=== PATIENT | male | born 1935 | race African-American/Black ===

== ENCOUNTER 2018-12-18 10:01 | Observation (INO) ==
--- NOTE | 2018-12-18 10:10 | Emergency Department Note ---
Disposition Clinical Impression: Generalized weakness UTI (urinary tract infection) Qualifiers: Urinary tract infection type: site unspecified Hematuria presence: without hematuria Qualified Code(s): N39.0 - Urinary tract infection, site not specified Fall Qualifiers: Encounter type: initial encounter Qualified Code(s): W19.XXXA - Unspecified fall, initial encounter Disposition: Admitted As Inpatient Condition: Good Referrals: Evy Christie QUANTITATIVE STRATEGY ANALYST [Primary Care Provider] - Forms: ED Satisfaction Letter Time of Disposition: 12:14 Weakness HPI - General Chief complaint: ED Weakness Stated complaint: weakness lethargic Time Seen by Provider: 12/18/18 10:09 Source: patient, EMS Mode of arrival: EMS Limitations: no limitations Nursing Notes Reviewed: Yes Vital Signs Reviewed: Yes - History of Present Illness HPI Narrative: Patient is an 83-year-old male with past medical history of diabetes. He presents today due to concern for generalized weakness. Patient states that this has been going for a few days, was worsening this morning. He said he felt weak this morning that he backed up against the wall and slid down. He denies any chest pain, shortness of breath, nausea, vomiting, fevers, diarrhea, abdominal pain, numbness, tingling, focal weakness in any limb, facial drooping, slurred speech. Denies any previous history of strokes. He takes oral diabetes medication, has not missed any doses. He took his blood sugar this morning and it was in the 200s. EMS states that there repeat glucose was in the 100. He did not take his medication this morning. His is present states that he presented like this in the past and had a UTI. Patient denies any other previous history of heart attack, stent placement. - Related Data Home Medications Medication Instructions Recorded Confirmed Calcitriol 0.5 mcg PO DAILY 03/22/16 09/26/18 Ergocalciferol (VITAMIN D2) 400 unit PO DAILY 03/22/16 09/26/18 [Vitamin D] GlipiZIDE [Glipizide Xl] 5 mg PO DAILY 03/22/16 09/26/18 Donepezil HCl [Aricept] 10 mg PO DAILY 03/22/17 09/26/18 Simvastatin [Zocor] 40 mg PO HS 03/25/18 09/26/18 Timolol Maleate 0.5% 1 drop RIGHT EYE BID 03/25/18 09/26/18 Allergies Allergy/AdvReac Type Severity Reaction Status Date / Time No Known Allergies Allergy Verified 09/26/18 10:39 All systems ED: reviewed and negative except as stated. Constitutional: Denies: fever Cardiovascular: Denies: chest pain Respiratory: Denies: dyspnea Gastrointestinal: Denies: abdominal pain, nausea, vomiting, diarrhea Genitourinary: Denies: urgency, dysuria, frequency, hematuria Integumentary: Denies: rash Neurological: Denies: headache, weakness, numbness, paresthesias Endocrine: Reports: fatigue Past Medical History - Past Medical History Attestation: Yes The following information was validated with the patient. Source: patient Medical history: Reports: diabetes Psychiatric history: Reports: no psych history - Social History Smoking Status: Never smoker Smokeless Tobacco Status: No Alcohol use: Reports: none Drug use: Reports: none, unknown Physical Exam - General Limitations: no limitations General appearance: alert, in no apparent distress - Head Head exam: atraumatic, normocephalic, normal inspection - Eye Eye exam: Present: normal appearance, PERRL, EOMI - ENT ENT exam: normal exam, normal oropharynx, mucous membranes moist - Neck Neck exam: Present: normal inspection, full ROM, trachea midline - Chest Chest inspection: Present: normal inspection, symmetric chest wall rise - Respiratory Respiratory exam: Present: normal lung sounds bilaterally - Cardiovascular Cardiovascular exam: Present: regular rate, normal rhythm, normal heart sounds - Abdominal Exam Abdominal exam: Present: soft, Non-Tender. Absent: tenderness, distention, guarding, rebound, rigidity - Extremities Exam Extremities exam: Present: normal inspection, full ROM. Absent: tenderness, pedal edema - Neurological Exam Neurological exam: Present: alert, oriented X3, CN II-XII intact. Absent: motor sensory deficit - Expanded Neurological Exam Patient oriented to: Present: person, place, time Speech: Present: fluid speech Cranial nerves: EOM function (II, III, IV, ): Normal, facial sensation (V): Normal, facial palsy (VII): Normal, spinal accessory function (XI): Normal, tongue deviation (XII): Normal Motor strength - LUE: 5/5 Motor strength - RUE: 5/5 Motor strength - LLE: 5/5 Motor strength - RLE: 5/5 Sensory exam upper extremity: light touch: Normal Sensory exam lower extremity: light touch: Normal Coma Scale Eye Opening: Spontaneous Coma Scale Motor Response: Obeys Commands Coma Scale Verbal Response: Oriented Coma Scale Total: 15 - Psychiatric Psychiatric exam: Present: normal affect, normal mood - Skin Skin exam: Present: warm, dry, intact, normal color Course Course Narrative: Vital stable. Physical exam shows mild left upper extremity drift but does not hit the bed. Otherwise, no other deficits noted. No facial drooping, no slurred speech, no other focal neurological deficit. Lungs within normal limits. Abdomen soft and nontender. does state that previously he had symptoms similar to this in he ended up having UTI. We will obtain EKG, chest x-ray to assess for any hip pneumonia, urinalysis, basic blood work and troponin level, also obtain CT the head for left upper extremity drift. Blood glucose was in the 100s. 12:09 lab work shows negative troponin, EKG was negative for any acute ST changes, chest x-ray negative for any acute cardio pulmonary process. Urinalysis shows evidence of UTI. TSH was negative. Vitals of been stable during his stay. He does have elevation white blood cell count but does not meet sepsis criteria at this time. I discussed with family the possibility of going home but did also discuss patient's recent generalized weakness, episode of falling, which may make it less safe to go home at this time. Patient states that he feels generally weak and could not get out of bed and is not comfortable with patient going home at this time due to safety issues. She states that he was slumping up against a wall and cannot get himself up, cannot walk. He can safely send the patient home at this time. We will start IV Rocephin, continue normal saline bolus and proceed with admission for UTI. Vital Signs Temperature 97.7 F 12/18/18 10:04 Pulse Rate 76 12/18/18 10:04 Respiratory Rate 15 12/18/18 10:04 Blood Pressure 144/76 12/18/18 10:04 O2 Sat by Pulse Oximetry 96 12/18/18 10:04 Temperature 97.7 F 12/18/18 10:04 Pulse Rate 83 12/18/18 12:39 Respiratory Rate 16 12/18/18 12:39 Blood Pressure 124/69 12/18/18 12:39 O2 Sat by Pulse Oximetry 100 12/18/18 12:39 Oxygen Delivery Oxygen Delivery Room Air Weakness - MDM Narrative Medical decision making narrative: Vital stable. Physical exam shows mild left upper extremity drift but does not hit the bed. Otherwise, no other deficits noted. No facial drooping, no slurred speech, no other focal neurological deficit. Lungs within normal limits. Abdomen soft and nontender. does state that previously he had symptoms similar to this in he ended up having UTI. We will obtain EKG, chest x-ray to assess for any hip pneumonia, urinalysis, basic blood work and troponin level, also obtain CT the head for left upper extremity drift. Blood glucose was in the 100s. 12:[address] negative. lab work shows negative troponin, EKG was negative for any acute ST changes, chest x-ray negative for any acute cardio pulmonary process. Urinalysis shows evidence of UTI. TSH was negative. Vitals of been stable during his stay. He does have elevation white blood cell count but does not meet sepsis criteria at this time. I discussed with family the possibility of going home but did also discuss patient's recent generalized weakness, episode of falling, which may make it less safe to go home at this time. Patient states that he feels generally weak and could not get out of bed and is not comfortable with patient going home at this time due to safety issues. She states that he was slumping up against a wall and cannot get himself up, cannot walk. He can safely send the patient home at this time. We will start IV Rocephin, continue normal saline bolus and proceed with admission for UTI. Hospitalist paged. 13:00 - Medical Records Medical records reviewed: Yes I reviewed the patient's medical records. - Lab Data Lab results reviewed: Yes I reviewed the patient's lab results. Result diagrams: 12/18/18 10:25 12/18/18 10:25 Lab Results 12/18/18 12/18/18 12/18/18 Range/Units 10:25 10:25 11:22 WBC 13.6 H (4.3-11.1) K/mcL RBC 3.88 L (4.19-5.50) M/mcL Hgb 11.6 L (12.9-16.9) g/dL Hct 36.9 L (37.5-50.1) % MCV 95.1 (83.0-100.0) fL MCH 29.9 (28.0-33.3) pg MCHC 31.4 L (31.6-35.5) g/dL RDW 11.9 (11.5-14.5) % Plt Count 127 L (140-400) K/mcL MPV 10.3 (9.4-12.4) fL Immature Gran % 0.9 (0-4) % Seg Neutrophils % 82.4 % Lymphocytes % 8.5 % Monocytes % 8.0 % Eosinophils % 0.1 % Basophils % 0.1 % Neutrophils # 11.2 H (1.6-8.9) K/mcL Lymphocytes # 1.2 (0.6-4.6) K/mcL Monocytes # 1.1 (0.0-1.3) K/mcL Eosinophils # 0.0 (0.0-0.6) K/mcL Basophils # 0.0 (0.0-0.2) K/mcL Sodium 136 (136-145) mEq/L Potassium 4.3 (3.5-5.1) mEq/L Chloride 103 (98-107) mEq/L Carbon Dioxide 19 L (23-29) mEq/L BUN 22 (8-23) mg/dL Creatinine 1.74 H (0.70-1.30) mg/dL Est GFR ( Amer) 46 L (> 60) Est GFR (Non-Af Amer) 38 L (> 60) BUN/Creatinine Ratio 13 (6-26) Glucose 242 H (70-105) mg/dL Calculated Osmolality 293 (280-300) Calcium 9.5 (8.6-10.3) mg/dL Total Bilirubin 0.8 (0.3-1.0) mg/dL AST 16 (13-39) Units/L ALT 22 (7-52) Units/L Alkaline Phosphatase 85 (34-104) Units/L Troponin I < 0.03 (< 0.04) ng/mL Serum Total Protein 6.8 (6.4-8.9) g/dL Albumin 3.8 (3.5-5.7) g/dL Globulin 3.0 (2.4-3.5) g/dL Albumin/Globulin Ratio 1.3 (1.1-2.2) TSH 0.901 (0.340-5.600) mcIU/mL Urine Color Yellow (Yellow) Urine Clarity Cloudy A (Clear) Urine pH 7.0 (5.0-8.0) pH Units Ur Specific [place] 1.014 (1.010-1.025) Urine Protein 100 H (Neg-Trace) mg/dL Urine Glucose (UA) 500 H (Normal) mg/dL Urine Ketones Negative (Negative) mg/dL Urine Blood Trace H (Negative) Urine Nitrite Negative (Negative) Urine Bilirubin Negative (Negative) Urine Urobilinogen Normal (Normal) mg/dL Ur Leukocyte Esterase Large H (Negative) Urine Microscopic RBC 3-5 H (0-3) per hpf Urine Microscopic WBC TNTC H (0-3) per hpf Ur Squamous Epith Cells Moderate H (None-Few) per lpf Urine Bacteria Moderate H (None-Few) per hpf Hyaline Casts None Seen (None-Few) per lpf Ur Culture Indicated? YES A (NO) - Radiology Data Radiology results reviewed: Yes I reviewed the patient's radiology results. - EKG Data EKG attestation: Yes I reviewed and interpreted this EKG. EKG results narrative: 12/18/2018 10:12. Normal sinus rhythm. Rate 81. W[place] 128. QRS 89. QTc 421. Normal axis. No acute ST elevation or depression. There is some mild ST elevation in V2, lead 1, lead aVL that is chronic for the patient compared to EKG on 10/20/2014. S.B.A.R. - S.B.A.R. Situation: Demographics, MOA Background: Presenting Complaint, Relevant PMH, Meds, & Allergies Assessment: Vital Signs, Course and respsone to treatment, Exam Concerns, Patient/Family Expectation, Pertinant Lab Results Recommendation: Barrier(s) to disposition, Recommendation based on pending studies, treatments, or consults S.B.A.R. Report Given to: Dr. Null NIH Stroke Scale - Level of Consciousness LOC: Alert - LOC Questions LOC Questions: Answers both correctly - LOC Commands LOC Commands: Performs both correctly - Best Gaze Best Gaze: Normal - Visual Visual: No visual loss - Facial Palsy Facial Palsy: Normal - Motor Arms Motor Arm-Left: Drift, does NOT hit bed Motor Arm-Right: No drift for 10 seconds - Motor Legs Motor Leg-Left: No drift for 5 seconds Motor Leg-Right: No drift for 5 seconds - Limb Ataxia Limb Ataxia: Absent of affected limb too weak to perform exam - Sensory Sensory: Normal - Best Language Best Language: No aphasia - Dysarthria Dysarthria: Normal - Extinction and Inattention Extinction and Inattention: Normal - NIHSS Total Score NIHSS Total Score: 1
[2018-12-18 10:35] LABS: Basophils % 0.1 %; Eosinophils % 0.1 %; Hematocrit 36.9 % (37.5-50.1); Hemoglobin 11.6 g/dL (12.9-16.9); Immature Granulocytes % 0.9 % (0-4); Lymphocytes # 1.2 K/mcL (0.6-4.6); Lymphocytes % 8.5 %; Mean Corpuscular HGB Conc 31.4 g/dL (31.6-35.5); Mean Corpuscular Hemoglobin 29.9 pg (28.0-33.3); Mean Corpuscular Volume 95.1 fL (83.0-100.0); Mean Platelet Volume 10.3 fL (9.4-12.4); Monocytes # 1.1 K/mcL (0.0-1.3); Neutrophils # 11.2 K/mcL (1.6-8.9); Platelet Count 127 K/mcL (140-400); Red Blood Count 3.88 M/mcL (4.19-5.50); Red Cell Distribution Width 11.9 % (11.5-14.5); Segmented Neutrophils % 82.4 %
[2018-12-18 10:57] LABS: Troponin I < 0.03 ng/mL (< 0.04)
--- NOTE | 2018-12-18 11:12 | Emergency Department Note ---
Disposition Clinical Impression: UTI (urinary tract infection), Generalized weakness, Fall Disposition: Admitted As Inpatient Condition: Good Referrals: Pratik,Eyv Crowley CNP [Primary Care Provider] - Forms: ED Satisfaction Letter General Adult HPI - General Chief complaint: ED Weakness Stated complaint: weakness lethargic Time Seen by Provider: 12/18/18 10:09 Source: patient, EMS Mode of arrival: EMS Limitations: no limitations - History of Present Illness Pain Scale: 0 - Related Data Home Medications Medication Instructions Recorded Confirmed Calcitriol 0.5 mcg PO DAILY 03/22/16 09/26/18 Ergocalciferol (VITAMIN D2) 400 unit PO DAILY 03/22/16 09/26/18 [Vitamin D] GlipiZIDE [Glipizide Xl] 5 mg PO DAILY 03/22/16 09/26/18 Donepezil HCl [Aricept] 10 mg PO DAILY 03/22/17 09/26/18 Simvastatin [Zocor] 40 mg PO HS 03/25/18 09/26/18 Timolol Maleate 0.5% 1 drop RIGHT EYE BID 03/25/18 09/26/18 Allergies Allergy/AdvReac Type Severity Reaction Status Date / Time No Known Allergies Allergy Verified 09/26/18 10:39 Constitutional: Denies: fever Cardiovascular: Denies: chest pain Respiratory: Denies: dyspnea Gastrointestinal: Denies: abdominal pain, nausea, vomiting, diarrhea Genitourinary: Denies: urgency, dysuria, frequency, hematuria Integumentary: Denies: rash Neurological: Denies: headache, weakness, numbness, paresthesias Endocrine: Reports: fatigue Past Medical History - Past Medical History Medical history: Reports: diabetes Psychiatric history: Reports: no psych history - Social History Smoking Status: Never smoker Smokeless Tobacco Status: No Alcohol use: Reports: none Drug use: Reports: none, unknown Physical Exam - General Limitations: no limitations General appearance: alert, in no apparent distress Course Vital Signs Temperature 97.7 F 12/18/18 10:04 Pulse Rate 76 12/18/18 10:04 Respiratory Rate 15 12/18/18 10:04 Blood Pressure 144/76 12/18/18 10:04 O2 Sat by Pulse Oximetry 96 12/18/18 10:04 Temperature 97.7 F 12/18/18 10:04 Pulse Rate 83 12/18/18 12:39 Respiratory Rate 16 12/18/18 12:39 Blood Pressure 124/69 12/18/18 12:39 O2 Sat by Pulse Oximetry 100 12/18/18 12:39 Oxygen Delivery Oxygen Delivery Room Air Medical Decision Making - Lab Data Result diagrams: 12/18/18 10:25 12/18/18 10:25 Lab Results 12/18/18 12/18/18 12/18/18 Range/Units 10:25 10:25 11:22 WBC 13.6 H (4.3-11.1) K/mcL RBC 3.88 L (4.19-5.50) M/mcL Hgb 11.6 L (12.9-16.9) g/dL Hct 36.9 L (37.5-50.1) % MCV 95.1 (83.0-100.0) fL MCH 29.9 (28.0-33.3) pg MCHC 31.4 L (31.6-35.5) g/dL RDW 11.9 (11.5-14.5) % Plt Count 127 L (140-400) K/mcL MPV 10.3 (9.4-12.4) fL Immature Gran % 0.9 (0-4) % Seg Neutrophils % 82.4 % Lymphocytes % 8.5 % Monocytes % 8.0 % Eosinophils % 0.1 % Basophils % 0.1 % Neutrophils # 11.2 H (1.6-8.9) K/mcL Lymphocytes # 1.2 (0.6-4.6) K/mcL Monocytes # 1.1 (0.0-1.3) K/mcL Eosinophils # 0.0 (0.0-0.6) K/mcL Basophils # 0.0 (0.0-0.2) K/mcL Sodium 136 (136-145) mEq/L Potassium 4.3 (3.5-5.1) mEq/L Chloride 103 (98-107) mEq/L Carbon Dioxide 19 L (23-29) mEq/L BUN 22 (8-23) mg/dL Creatinine 1.74 H (0.70-1.30) mg/dL Est GFR ( Amer) 46 L (> 60) Est GFR (Non-Af Amer) 38 L (> 60) BUN/Creatinine Ratio 13 (6-26) Glucose 242 H (70-105) mg/dL Calculated Osmolality 293 (280-300) Calcium 9.5 (8.6-10.3) mg/dL Total Bilirubin 0.8 (0.3-1.0) mg/dL AST 16 (13-39) Units/L ALT 22 (7-52) Units/L Alkaline Phosphatase 85 (34-104) Units/L Troponin I < 0.03 (< 0.04) ng/mL Serum Total Protein 6.8 (6.4-8.9) g/dL Albumin 3.8 (3.5-5.7) g/dL Globulin 3.0 (2.4-3.5) g/dL Albumin/Globulin Ratio 1.3 (1.1-2.2) TSH 0.901 (0.340-5.600) mcIU/mL Urine Color Yellow (Yellow) Urine Clarity Cloudy A (Clear) Urine pH 7.0 (5.0-8.0) pH Units Ur Specific [place] 1.014 (1.010-1.025) Urine Protein 100 H (Neg-Trace) mg/dL Urine Glucose (UA) 500 H (Normal) mg/dL Urine Ketones Negative (Negative) mg/dL Urine Blood Trace H (Negative) Urine Nitrite Negative (Negative) Urine Bilirubin Negative (Negative) Urine Urobilinogen Normal (Normal) mg/dL Ur Leukocyte Esterase Large H (Negative) Urine Microscopic RBC 3-5 H (0-3) per hpf Urine Microscopic WBC TNTC H (0-3) per hpf Ur Squamous Epith Cells Moderate H (None-Few) per lpf Urine Bacteria Moderate H (None-Few) per hpf Hyaline Casts None Seen (None-Few) per lpf Ur Culture Indicated? YES A (NO) Attestation Statement - Attestation Attestation: I examined this patient and my medical decision-making was reviewed with the Resident Physician. I agree with the documented findings, disposition and treatment plan as described except to the extent set forth below. Patient presents to the ED with Johny and generalized weakness. Onset today. Woke up this way. He denies any focal weakness. arrives and states that this happened previously when he had a UTI. Denies any numbness or tingling. states when she took the garbage out and came back and he had slumped down to the floor. He denies injury. On examination he is awake alert. Oriented. In no distress. Moving all extremities. Abdomen soft. Lungs clear. Plan. Generalized weakness workup. CT head. Workup is significant for UTI. Concern as the collapse today that he is unsafe for discharge home. Admitted to medicine. Chest X-Ray 12/18/18 10:09 IMPRESSION: No acute process. D/ / Jonel Addison MD / Jonel Addison MD Interpreting Provider: Jonel Addison MD Head CT 12/18/18 10:11 IMPRESSION: No acute intracranial abnormality. Generalized age-related cortical atrophy and chronic microvascular ischemic changes. D/ / Jacobo Escobar MD / Jacobo Escobar MD Interpreting Provider: Jacobo Escobar MD
[2018-12-18] MEDS ORDERED: Lidocaine Jelly 11 ml Syringe MM ONE (11:21)
[2018-12-18 11:40] LABS: Bilirubin,Urine Negative (Negative); Blood,Urine Trace (Negative); Clarity,Urine Cloudy (Clear); Color,Urine Yellow (Yellow); Glucose,Urine (UA) 500 mg/dL (Normal); Ketones,Urine Negative (Negative); Leukocyte Esterase,Urine Large (Negative); Nitrite,Urine Negative (Negative); Protein,Urine 100 mg/dL (Neg-Trace); Specific Gravity,Urine 1.014 (1.010-1.025); Urobilinogen,Urine Normal (Normal)
[2018-12-18 11:42] LABS: Bacteria,Urine Moderate per hpf (None-Few); Hyaline Casts,Urine None Seen per lpf (None-Few); Squamous Epithelial Cell,Urine Moderate per lpf (None-Few); WBC,Urine TNTC per hpf (0-3)
[2018-12-18 11:56] LABS: Alanine Aminotransferase 22 Units/L (7-52); Albumin 3.8 g/dL (3.5-5.7); Albumin/Globulin Ratio 1.3 (1.1-2.2); Alkaline Phosphatase 85 Units/L (34-104); Aspartate Amino Transferase 16 Units/L (13-39); BUN/Creatinine Ratio 13 (6-26); Bilirubin,Total 0.8 mg/dL (0.3-1.0); Blood Urea Nitrogen 22 mg/dL (8-23); Calcium 9.5 mg/dL (8.6-10.3); Carbon Dioxide 19 mEq/L (23-29); Chloride 103 mEq/L (98-107); Glucose 242 mg/dL (70-105); Osmolality,Calculated 293 (280-300); Potassium 4.3 mEq/L (3.5-5.1); Sodium 136 mEq/L (136-145); Thyroid Stimulating Hormone 0.901 mcIU/mL (0.340-5.600); Total Protein 6.8 g/dL (6.4-8.9); eGFR For Non-African Americans 38 (> 60)
[2018-12-18] MEDS ORDERED: cefTRIAXone 1,000 MG in Water for inj. (sterile) 20 ML 10 ML IVP ONE (12:08)
[2018-12-18] MEDS ORDERED: 0.9 % Sodium Chloride 1,000 ML IVC ONE (12:08)
--- NOTE | 2018-12-18 13:49 | Internal Med History&Physical ---
Date of Encounter: 12/18/18 Time of Encounter: 13:46 Internal Medicine - H&P: HPI Chief complaint: Weakness Admitted From: Emergency Dept Plans for Post Hospital Care: Home History of present illness: Shawn Wallace is an 83 M w hx DM2, BPH, dementia, who presents to ED for weakness. Pt's provides most of the history. States he was fatigued, increasingly so over the last few days, and today slumped against the wall and could not hold himself up any longer. This is not the first time this has happened; in the past it occurred from a UTI. Pt has BPH and takes flomax and oxybutynin to help him urinate, and has longstanding DM2 which furthers his risk of UTI. The patient and deny any additional symptoms including no fever, chills, night sweats, change in appetite, chest pain, SOB or cough, abd pain, N/V, diarrhea, or muscle aches. In the ED, pt listless but pleasant, vitals normal, strength diminished g lobally. Labs showed WBC 13. CT head and CXR both unremarkable. A UA was positive for WBC, LE, and bacteria. Pt given dose of rocephin, liter of fluid, and admitted for obs. PMH: DM2, BPH, dementia, anemia PSH: several joint surgeries including knee and hips and shoulder SH: remote smoker, no EtOH, lives at home with FH: reviewed, nothing relevant to UTI Allergies: none Past Med Surg Social Fam HX - Past Medical History Medical history: diabetes Additional medical history: CKD Psychiatric history: no psych history - Past Surgical History Additional surgical history: Bilateral Knee Replacement. Left Hip Replacement. Right Rotator cuff repair. Right eye. Prostate Biopsy. Bone Marrow Biopsy - Social History Smoking Status: Never smoker Smokeless Tobacco Status: No Alcohol use: none Drug use: none, unknown Internal Medicine - H&P: Meds Ergocalciferol (VITAMIN D2) [Vitamin D] 400 unit PO DAILY 03/22/16 [History] GlipiZIDE [Glipizide Xl] 5 mg PO BID 03/22/16 [History] Donepezil HCl [Aricept] 10 mg PO HS 03/22/17 [History] Simvastatin [Zocor] 40 mg PO DAILY 03/25/18 [History] Calcitriol [Rocaltrol] 0.25 mcg PO MOWEFR 12/18/18 [History] Memantine HCl 10 mg PO BID 12/18/18 [History] Oxybutynin [Ditropan] 5 mg PO HS 12/18/18 [History] Tamsulosin [Flomax] 0.4 mg PO DAILY 12/18/18 [History] Allergy/AdvReac Type Severity Reaction Status Date / Time No Known Allergies Allergy Verified 09/26/18 10:39 All Systems PM: A 10-system review of systems was performed and is negative for pertinent findings except as documented above in the HPI. Review of systems: Constitutional: No fever, chills, night sweats, weight change, appetite change, ++malaise/fatigue Skin: No rash, itching, lesions, bruises HENT: No congestion, sore throat Eyes: No blurry vision, diminished vision Cardiovascular: No chest pain, palpitations, edema, orthopnea Respiratory: No cough, shortness of breath, wheezing Gastrointestinal: No nausea, vomiting, abdominal pain, diarrhea, constipation Genitourinary: No dysuria, hematuria Musculoskeletal: No joint pains, decreased range of motion Neurological: No dizziness, headaches, weakness, +mild confusion Psychiatric: No depression, anxiety Allergy/Immunology: No history of environmental allergies, urticaria Endocrine: No polydipsia, polyuria, cold/heat intolerance - Constitutional Vitals: Temp Pulse Resp BP Pulse Ox 97.7 F 83 16 124/69 100 12/18/18 10:04 12/18/18 12:39 12/18/18 12:39 12/18/18 12:39 12/18/18 12:39 Exam: General: NAD, good eye contact, well appearing, elderly Head: Atraumatic, normocephalic. Face symmetric Eyes: EOMI, sclerae anicteric ENT: Mucous membranes dry. Normal oral mucosa and moderate dentition. Trachea midline. No cervical lymphadenopathy Thoracic: No visible chest wall deformities. Normal breath sounds b/l, no wheezing or crackles Cardio: Normal S1 and S2, regular rate and rhythm, no murmurs. Abdomen: Soft, nontender, nondistended. No CVA tenderness. Extremities: Warm, well perfused. DP pulses 2+ b/l. No clubbing, cyanosis. No edema Skin: Intact. No rashes, bruises, or ulcers Neuro: Awake, oriented to person and place. Poor memory, decent concentration and attention. Speech fluent. CN II-XII grossly intact. Strength 5/5 in b/l UE and LE Internal Med - H&P Results - Labs CBC & Chem 7: 12/18/18 10:25 12/18/18 10:25 Labs: Short CBC 12/18/18 Range/Units 10:25 WBC 13.6 H (4.3-11.1) K/mcL Hgb 11.6 L (12.9-16.9) g/dL Hct 36.9 L (37.5-50.1) % Plt Count 127 L (140-400) K/mcL Neutrophils # 11.2 H (1.6-8.9) K/mcL BMP 12/18/18 10:25 Sodium 136 Potassium 4.3 Chloride 103 Carbon Dioxide 19 L BUN 22 Creatinine 1.74 H Glucose 242 H Calcium 9.5 Cardiac Enzymes 12/18/18 Range/Units 10:25 Troponin I < 0.03 (< 0.04) ng/mL Liver Function 12/18/18 Range/Units 10:25 Total Bilirubin 0.8 (0.3-1.0) mg/dL AST 16 (13-39) Units/L ALT 22 (7-52) Units/L Alkaline Phosphatase 85 (34-104) Units/L Albumin 3.8 (3.5-5.7) g/dL Urine 12/18/18 Range/Units 11:22 Urine Color Yellow (Yellow) Urine Clarity Cloudy A (Clear) Urine pH 7.0 (5.0-8.0) pH Units Ur Specific [place] 1.014 (1.010-1.025) Urine Protein 100 H (Neg-Trace) mg/dL Urine Glucose (UA) 500 H (Normal) mg/dL - Impressions ITS Impressions Chest X-Ray 12/18/18 10:09 IMPRESSION: No acute process. D/ / Jonel Addison MD / Jonel Addison MD Interpreting Provider: Jonel Addison MD Head CT 12/18/18 10:11 IMPRESSION: No acute intracranial abnormality. Generalized age-related cortical atrophy and chronic microvascular ischemic changes. D/ / Jacobo Escobar MD / Jacobo Escobar MD Interpreting Provider: Jacobo Escobar MD - Assessment and plan (1) UTI (urinary tract infection) Current Visit: Yes Status: Acute Assessment and plan: Shawn Wallace is an 83 M w hx DM2, anemia, who p/w generalized weakness, found to have dirty UA and leukocytosis, concerning for UTI. UTI: w leukocytosis - UCx pending - empiric rocephin Anion gap metabolic acidosis: 2/2 CKD - check lactate - consider starting bicarb po Acute encephalopathy: 2/2 UTI above, also has acidosis despite stable renal fxn, in context of mild dementia - sundowning precautions - treat underlying cause as above DM2: w hyperglycemia, SSI while inpatient BPH: wears Depends, home flomax and oxybutynin Dementia: home aricept and namenda Chronic mild normocytic anemia: likely 2/2 chronic disease Thrombocytopenia: mild, noted PPx: sqh FEN: ADA, no MIVF Lines: PIV Consults: Code: Full Dispo: obs for weakness, anticipate possible d/c tomorrow if clinically improves on abx. Will be homegoing Qualifiers: Urinary tract infection type: site unspecified Hematuria presence: without hematuria Qualified Code(s): N39.0 - Urinary tract infection, site not spe cified - Time Spent With Patient Total time spent is greater than 50% in coordination of care (as documented) at patient's floor/unit and/or counseling patient:
[2018-12-18] MEDS ORDERED: Dextrose Gel 15 GM/37.5 ML TUBE PO PRN ×2 (13:51)
[2018-12-18] MEDS ORDERED: *HR* Dextrose 50 % in Water (Syg) 50 ML SYRINGE IVP PRN (13:51)
[2018-12-18] MEDS ORDERED: Ondansetron 4 MG/2 ML VIAL IVP PRN (13:51)
[2018-12-18] MEDS ORDERED: Acetaminophen 325 MG TABLET PO PRN (13:51)
[2018-12-18] MEDS ORDERED: D5% in Water 1,000 ML IVC PRN (13:51)
[2018-12-18] MEDS ORDERED: Dextrose 4 GM Chewable Tablets PO PRN ×2 (13:51)
--- NOTE | 2018-12-19 03:31 | Electrocardiograph Report ---
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
[2018-12-19 06:09] LABS: Hematocrit 31.8 % (37.5-50.1); Hemoglobin 10.6 g/dL (12.9-16.9); Mean Corpuscular HGB Conc 33.3 g/dL (31.6-35.5); Mean Corpuscular Hemoglobin 30.5 pg (28.0-33.3); Mean Corpuscular Volume 91.4 fL (83.0-100.0); Mean Platelet Volume 10.7 fL (9.4-12.4); Platelet Count 127 K/mcL (140-400); Red Blood Count 3.48 M/mcL (4.19-5.50); Red Cell Distribution Width 11.9 % (11.5-14.5)
[2018-12-19 06:38] LABS: Calcium 9.4 mg/dL (8.6-10.3); Magnesium 1.8 mg/dL (1.6-2.6); Potassium 4.2 mEq/L (3.5-5.1)
[2018-12-19] MEDS ORDERED: cefTRIAXone 1,000 MG in Water for inj. (sterile) 20 ML 10 ML IVP SCH ×2 (12:00)
--- NOTE | 2018-12-19 13:12 | Internal Med Progress Note ---
Hospitalist Progress Note - Encounter Date of Encounter: 12/19/18 Time of Encounter: 12:56 - Subjective Interval History: Mr. Wallace is an 83 M w hx DM2, BPH and dementia, who presented to ED for generalized weakness and lethargy. As per , he was fatigued, increasingly so over the last few days, and today slumped against the wall and could not hold himself up any longer. In the past it occurred from a UTI. Pt has BPH and takes flomax and oxybutynin to help him urinate. His UA was abnormal. Pt was admitted in the hospital and placed him on antibiotic Rocephin. Patient stated he is feeling little better today. He still feeling weak and lethargic. - Exam Vitals: Temp Pulse Resp BP Pulse Ox 97.8 F 85 16 110/52 96 12/19/18 10:56 12/19/18 10:56 12/19/18 10:56 12/19/18 10:56 12/19/18 10:56 Exam: Gen: Alert, awake, Oriented to time,place and person Chest: Diminished breath sounds B/L, No wheezing, No crackles, No rales Heart: S1S2+ RRR No murmurs Abd: Soft, NT, BS +, No organomegaly Ext: No edema, pulses are palpable, No calf tenderness Neuro : Benign findings Skin: No rash. - Assessment and Plan (1) UTI (urinary tract infection) Current Visit: Yes Status: Acute Assessment and Plan: UA is abnormal Cont emprical abx Rocephin waiting on urine cx results (2) Generalized weakness Current Visit: Yes Status: Acute Assessment and Plan: Due to UTI Improving continue symptomatic and supportive care (3) BPH (benign prostatic hyperplasia) Current Visit: Yes Status: Acute Assessment and Plan: Resumed home medications follow-up with the urology as an outpatient (4) DM2 (diabetes mellitus, type 2) Current Visit: Yes Status: Acute Assessment and Plan: his recent Hb A1C 8.1 on ISS now (5) CKD (chronic kidney disease) stage 3, GFR 30-59 ml/min Current Visit: No Status: Acute Assessment and Plan: Stable Cr at baseline - Time Spent with Patient Total time spent is greater than 50% in coordination of care (as documented) at patient's floor/unit and/or counseling patient: Internal Medicine: Result - Labs CBC & Chem 7: 12/19/18 05:24 12/19/18 05:24 Labs: Short CBC 12/19/18 Range/Units 05:24 WBC 12.1 H (4.3-11.1) K/mcL Hgb 10.6 L (12.9-16.9) g/dL Hct 31.8 L (37.5-50.1) % Plt Count 127 L (140-400) K/mcL BMP 12/19/18 05:24 Sodium 139 Potassium 4.2 Chloride 104 Carbon Dioxide 25 BUN 24 H Creatinine 1.73 H Glucose 242 H Calcium 9.4 Consult Discharge Plan - Plan Referrals: Evy Christie CNP [Primary Care Provider] - 12/24/18 9:30 am () (1) UTI (urinary tract infection) Qualifiers: Urinary tract infection type: site unspecified Hematuria presence: without hematuria Qualified Code(s): N39.0 - Urinary tract infection, site not specified (3) BPH (benign prostatic hyperplasia) Qualifiers: Lower urinary tract symptom presence: symptoms present Lower urinary tract symptom detail: urinary frequency Qualified Code(s): N40.1 - Benign prostatic hyperplasia with lower urinary tract symptoms; R35.0 - Frequency of micturition (4) DM2 (diabetes mellitus, type 2) Qualifiers: Diabetes mellitus chcf insulin use: without professor of chemistry use Diabetes mellitus complication status: with kidney complications Diabetes mellitus complication detail: with chronic kidney disease Chronic kidney disease stage: stage 3 (moderate) Qualified Code(s): E11.22 - Type 2 diabetes mellitus with diabetic chronic kidney disease; N18.3 - Chronic kidney disease, stage 3 (moderate)
--- NOTE | 2018-12-20 08:39 | Discharge Summary ---
- NOTES TO OUTPATIENT PROVIDER Notes to Outpatient Provider: Follow up with your PCP within a week of hospital discharge. Orders not resulted at time of discharge: Pending orders 12/18/18 11:22 Culture,Urine [RM] Stat 12/20/18 08:36 CBC [Complete Blood Count] [HEME] Stat Date of Encounter: 12/20/18 Time of Encounter: 08:37 - Discharge Diagnosis (1) UTI (urinary tract infection) Priority: Primary Status: Acute Qualifiers: Urinary tract infection type: site unspecified Hematuria presence: without hematuria Qualified Code(s): N39.0 - Urinary tract infection, site not specified (2) CKD (chronic kidney disease) stage 3, GFR 30-59 ml/min Priority: Secondary Status: Chronic (3) Generalized weakness Priority: Secondary Status: Acute (4) BPH (benign prostatic hyperplasia) Priority: Secondary Status: Acute Qualifiers: Lower urinary tract symptom presence: symptoms present Lower urinary tract symptom detail: urinary frequency Qualified Code(s): N40.1 - Benign prostatic hyperplasia with lower urinary tract symptoms; R35.0 - Frequency of micturition (5) DM2 (diabetes mellitus, type 2) Priority: Secondary Status: Chronic Qualifiers: Diabetes mellitus adjunct faculty for medical terminology insulin use: without fpc use Diabetes mellitus complication status: with kidney complications Diabetes mellitus complication detail: with chronic kidney disease Chronic kidney disease stage: stage 3 (moderate) Qualified Code(s): E11.22 - Type 2 diabetes mellitus with diabetic chronic kidney disease; N18.3 - Chronic kidney disease, stage 3 (moderate) (6) Diabetes Priority: Secondary Status: Chronic Qualifiers: Diabetes mellitus type: type 2 Diabetes mellitus fpc insulin use: unspecified adjunct faculty for medical terminology insulin use status Diabetes mellitus complication status: with unspecified complications Qualified Code(s): E11.8 - Type 2 diabetes mellitus with unspecified complications Hospital course: Mr. Wallace is a 83 year old male hx DM2, BPH, dementia, recurrent UTI, who presents to ED for weakness. UA diagnostic for UTI and patient admitted for management. Patient started empirically on Ceftriaxone. urine culture grew pansensitive enterococcus, patient is being discharged on oral antibiotics to complete treatment as outpatient. Patient's acute symptoms have resolved. Recommended to follow up with his PCP within a week of hospital discharge. - Time Spent with Patient Total time spent providing and/or coordinating discharge services: Greater than 30 minutes (35) - Discharge Medications Prescriptions: New Nitrofurantoin Macrocrystal [Nitrofurantoin] 100 mg PO BID 5 Days #10 capsule Continue GlipiZIDE [Glipizide Xl] 5 mg PO BID Ergocalciferol (VITAMIN D2) [Vitamin D] 400 unit PO DAILY Donepezil HCl [Aricept] 10 mg PO HS Simvastatin [Zocor] 40 mg PO DAILY Calcitriol [Rocaltrol] 0.25 mcg PO MOWEFR Memantine HCl 10 mg PO BID Oxybutynin [Ditropan] 5 mg PO HS Tamsulosin [Flomax] 0.4 mg PO DAILY Home Medications: Ergocalciferol (VITAMIN D2) [Vitamin D] 400 unit PO DAILY 03/22/16 [History] GlipiZIDE [Glipizide Xl] 5 mg PO BID 03/22/16 [History] Donepezil HCl [Aricept] 10 mg PO HS 03/22/17 [History] Simvastatin [Zocor] 40 mg PO DAILY 03/25/18 [History] Calcitriol [Rocaltrol] 0.25 mcg PO MOWEFR 12/18/18 [History] Memantine HCl 10 mg PO BID 12/18/18 [History] Oxybutynin [Ditropan] 5 mg PO HS 12/18/18 [History] Tamsulosin [Flomax] 0.4 mg PO DAILY 12/18/18 [History] Nitrofurantoin Macrocrystal [Nitrofurantoin] 100 mg PO BID 5 Days #10 capsule 12/20/18 [Rx] Allergies/Adverse Reactions: Allergy/AdvReac Type Severity Reaction Status Date / Time No Known Allergies Allergy Verified 09/26/18 10:39 Date of admission: 12/18/18 13:43 Primary care physician: Evy Christie CNP Consults: 12/18/18 13:54 Consult to Occupational Therapy [CONS] Routine Comment: Evaluate, develop and implement POC Reason for Consult: weakness from UTI Does patient have active BEDREST order?: No Is patient medically & hemodynamically stable?: Yes - Constitutional Vitals: Temp Pulse Resp BP Pulse Ox 98 F 71 16 132/78 98 12/20/18 07:02 12/20/18 07:02 12/20/18 07:02 12/20/18 07:02 12/20/18 07:02 Exam: Vitals: Reviewed General: Alert and oriented x3. In no distress Skin: Normal color, no rash, no lesions. HEENT: EOM, pupils equal, round and reactive. Cardiovascular: RRR, normal S1 & S2, no rubs, murmurs or gallops. Lungs: CTA b/l, no wheezes or crackles. Abdomen: Soft, non-tender, no rigidity. Extremities: No deformity, no edema or tenderness, no joint swelling or clubbing. Neurological: Normal cognition and motor skills. Rest of the physical exam is non contributory - Patient Status Disposition: Home Health Service Condition: Good Functional capacity at discharge: independent ambulation Overall status at discharge: patient is progressing back to baseline - Discharge Instructions Follow Up With: Evy Christie CNP [Primary Care Provider] - 12/24/18 9:30 am () - Diet and Activity Activity: as per physical therapy Diet: diabetic diet, low salt diet
--- NOTE | 2018-12-20 08:46 | Physician Discharge Referral ---
Home Health/Hosp Referral Info Transfer to: Home Health - Diagnosis (1) UTI (urinary tract infection) Priority: Primary Status: Acute (2) CKD (chronic kidney disease) stage 3, GFR 30-59 ml/min Priority: Secondary Status: Chronic (3) Generalized weakness Priority: Secondary Status: Acute (4) BPH (benign prostatic hyperplasia) Priority: Secondary Status: Acute (5) DM2 (diabetes mellitus, type 2) Priority: Secondary Status: Chronic (6) Diabetes Priority: Secondary Status: Chronic - Respiratory Orders None Smoking Cessation: Smoking cessation has been advised. For more information, call the [place] Tobacco Quit Line at 9-368-SEBJ-NOW. - Diet/Nutrition Diet/Nutrition Orders: Regular - Activity Activity Orders: Ambulate - Services Needed Following services are medically necessary services: Nursing, Home Health Aide, Physical Therapy, Occupational Therapy - Transfer Medications Home Medications: Ergocalciferol (VITAMIN D2) [Vitamin D] 400 unit PO DAILY 03/22/16 [History] GlipiZIDE [Glipizide Xl] 5 mg PO BID 03/22/16 [History] Donepezil HCl [Aricept] 10 mg PO HS 03/22/17 [History] Simvastatin [Zocor] 40 mg PO DAILY 03/25/18 [History] Calcitriol [Rocaltrol] 0.25 mcg PO MOWEFR 12/18/18 [History] Memantine HCl 10 mg PO BID 12/18/18 [History] Oxybutynin [Ditropan] 5 mg PO HS 12/18/18 [History] Tamsulosin [Flomax] 0.4 mg PO DAILY 12/18/18 [History] Allergies/Adverse Reactions: Allergy/AdvReac Type Severity Reaction Status Date / Time No Known Allergies Allergy Verified 09/26/18 10:39 Certification: Further, I certify that my clinical findings support that this patient is homebound (i.e. absences from home require considerable and taxing effort and are for medical reasons or [facility] services or infrequently or short duration when for other reasons) because: Homebound Reason: Patient requires assistance of a person or device to safely leave home Attestation: My signature below is to certify that this patient is under my care and that I, or nurse practitioner, or a physician's school health assistant working with me, has a [id number] encounter with this patient.
[2018-12-20 09:39] LABS: Basophils % 0.1 %; Eosinophils # 0.1 K/mcL (0.0-0.6); Eosinophils % 1.7 %; Hematocrit 31.6 % (37.5-50.1); Hemoglobin 10.5 g/dL (12.9-16.9); Immature Granulocytes % 0.7 % (0-4); Lymphocytes # 1.4 K/mcL (0.6-4.6); Lymphocytes % 18.6 %; Mean Corpuscular HGB Conc 33.2 g/dL (31.6-35.5); Mean Corpuscular Hemoglobin 30.2 pg (28.0-33.3); Mean Corpuscular Volume 90.8 fL (83.0-100.0); Mean Platelet Volume 10.3 fL (9.4-12.4); Monocytes # 0.6 K/mcL (0.0-1.3); Neutrophils # 5.3 K/mcL (1.6-8.9); Platelet Count 123 K/mcL (140-400); Red Blood Count 3.48 M/mcL (4.19-5.50); Red Cell Distribution Width 11.9 % (11.5-14.5); Segmented Neutrophils % 70.9 %
[2018-12-20 11:00] VITALS: BP 107/59
[2018-12-20] MEDS ORDERED: Insulin LISPRO 300 UNITS/3 ML VIAL SQ SCH (16:30)
[2018-12-20] MEDS ORDERED: Insulin DETEMIR 100 UNIT/ML X5UNITS SQ SCH (21:00)
== END 2018-12-20 13:27 | disposition home health service (06) ==
LOC: SUATTDRO → 3BNU 10:01 → EMEROOARM 10:01 → SUATTDRO 13:43 → 3BNU 14:38
PROVIDERS: ADMIT Internal Medicine; ATTEND Family Medicine

== ENCOUNTER 2019-09-15 11:01 | Observation (INO) ==
[2019-09-15] MEDS ORDERED: 0.9 % Sodium Chloride 1,000 ML IVC ONE (11:49)
[2019-09-15 13:04] LABS: Basophils % 0.3 %; Eosinophils # 0.1 K/mcL (0.0-0.6); Eosinophils % 0.8 %; Hematocrit 37.3 % (37.5-50.1); Hemoglobin 12.4 g/dL (12.9-16.9); Immature Granulocytes % 0.6 % (0-4); Lymphocytes # 0.6 K/mcL (0.6-4.6); Lymphocytes % 8.8 %; Mean Corpuscular HGB Conc 33.2 g/dL (31.6-35.5); Mean Corpuscular Volume 93.3 fL (83.0-100.0); Mean Platelet Volume 10.4 fL (9.4-12.4); Monocytes # 0.4 K/mcL (0.0-1.3); Monocytes % 6.7 %; Neutrophils # 5.5 K/mcL (1.6-8.9); Platelet Count 128 K/mcL (140-400); Segmented Neutrophils % 82.8 %; White Blood Count 6.6 K/mcL (4.3-11.1)
[2019-09-15 13:24] LABS: Alanine Aminotransferase 33 Units/L (7-52); Albumin/Globulin Ratio 1.4 (1.1-2.2); Alkaline Phosphatase 81 Units/L (34-104); Aspartate Amino Transferase 21 Units/L (13-39); BUN/Creatinine Ratio 19 (6-26); Bilirubin,Total 0.5 mg/dL (0.3-1.0); Blood Urea Nitrogen 36 mg/dL (8-23); Calcium 10.1 mg/dL (8.6-10.3); Carbon Dioxide 25 mEq/L (23-29); Chloride 104 mEq/L (98-107); Globulin 2.9 g/dL (2.4-3.5); Glucose 266 mg/dL (70-105); Magnesium 2.1 mg/dL (1.6-2.6); Osmolality,Calculated 304 (280-300); Potassium 4.6 mEq/L (3.5-5.1); Sodium 138 mEq/L (136-145); Total Protein 6.9 g/dL (6.4-8.9); Troponin I < 0.03 ng/mL (< 0.04); eGFR For African Americans 42 (> 60); eGFR For Non-African Americans 35 (> 60)
[2019-09-15 14:49] LABS: Bilirubin,Urine Negative (Negative); Blood,Urine Negative (Negative); Clarity,Urine Clear (Clear); Color,Urine Yellow (Yellow); Glucose,Urine (UA) 500 mg/dL (Normal); Ketones,Urine Negative (Negative); Leukocyte Esterase,Urine Negative (Negative); Nitrite,Urine Negative (Negative); PH,Urine 6.5 pH Units (5.0-8.0); Protein,Urine Trace mg/dL (Neg-Trace); Specific Gravity,Urine 1.018 (1.010-1.025); Urobilinogen,Urine Normal (Normal)
[2019-09-15] MEDS ORDERED: Acetaminophen 325 MG TABLET PO PRN (17:07)
[2019-09-15] MEDS ORDERED: Ondansetron ODT 4 MG TAB.RAPDIS SL PRN (17:07)
[2019-09-15] MEDS ORDERED: 0.9 % Sodium Chloride 500 ML IVC ONE (17:09)
[2019-09-15] MEDS: *HR* Heparin 5,000 UNIT/ML VIAL SQ SCH (18:45)
[2019-09-15] MEDS ORDERED: Haloperidol Lactate 5 MG/ML VIAL IVP ONE (23:58)
[2019-09-15] MEDS ORDERED: *HR* Promethazine 25 MG/ML VIAL IVP ONE (23:58)
[2019-09-16 01:54] LABS: Calcium 9.3 mg/dL (8.6-10.3); Magnesium 1.7 mg/dL (1.6-2.6); Potassium 4.2 mEq/L (3.5-5.1)
[2019-09-16] MEDS: *HR* Heparin 5,000 UNIT/ML VIAL SQ SCH (05:06)
[2019-09-16] MEDS ORDERED: Aspirin Enteric Coated 81 MG Tablet PO SCH (09:00)
[2019-09-16 12:13] VITALS: BP 137/81
== END 2019-09-16 14:57 | disposition home or self-care (01) ==
LOC: 3BNU 11:01 → EMEROOARM 11:01 → SUATTDRO 16:13 → 3BNU 17:09
PROVIDERS: ADMIT Internal Medicine; ATTEND Internal Medicine

== ENCOUNTER 2019-10-05 15:13 | Observation (INO) ==
[2019-10-05 15:57] LABS: Basophils % 0.1 %; Eosinophils # 0.1 K/mcL (0.0-0.6); Hematocrit 39.3 % (37.5-50.1); Hemoglobin 13.3 g/dL (12.9-16.9); Lymphocytes # 1.2 K/mcL (0.6-4.6); Lymphocytes % 17.6 %; Mean Corpuscular HGB Conc 33.8 g/dL (31.6-35.5); Mean Corpuscular Hemoglobin 30.8 pg (28.0-33.3); Monocytes # 0.4 K/mcL (0.0-1.3); Neutrophils # 5.2 K/mcL (1.6-8.9); Platelet Count 173 K/mcL (140-400); Red Blood Count 4.32 M/mcL (4.19-5.50); Red Cell Distribution Width 12.3 % (11.5-14.5); Segmented Neutrophils % 74.3 %
[2019-10-05 16:00] LABS: INR 1.2; Prothrombin Time 13.7 Seconds (9.4-12.1)
[2019-10-05 16:21] LABS: Alanine Aminotransferase 27 Units/L (7-52); Albumin 4.1 g/dL (3.5-5.7); Albumin/Globulin Ratio 1.3 (1.1-2.2); Alkaline Phosphatase 85 Units/L (34-104); Aspartate Amino Transferase 19 Units/L (13-39); BUN/Creatinine Ratio 18 (6-26); Bilirubin,Total 0.3 mg/dL (0.3-1.0); Blood Urea Nitrogen 35 mg/dL (8-23); Calcium 9.9 mg/dL (8.6-10.3); Carbon Dioxide 26 mEq/L (23-29); Chloride 103 mEq/L (98-107); Globulin 3.1 g/dL (2.4-3.5); Glucose 307 mg/dL (70-105); Magnesium 1.9 mg/dL (1.6-2.6); Osmolality,Calculated 304 (280-300); Potassium 5.7 mEq/L (3.5-5.1); Sodium 137 mEq/L (136-145); Total Protein 7.2 g/dL (6.4-8.9); Troponin I < 0.03 ng/mL (< 0.04); eGFR For African Americans 40 (> 60); eGFR For Non-African Americans 33 (> 60)
[2019-10-05] MEDS ORDERED: 0.9 % Sodium Chloride 500 ML IVC ONE (16:32)
[2019-10-05 16:53] LABS: Bilirubin,Urine Negative (Negative); Blood,Urine Moderate (Negative); Clarity,Urine Clear (Clear); Color,Urine Yellow (Yellow); Glucose,Urine (UA) 500 mg/dL (Normal); Ketones,Urine Negative (Negative); Leukocyte Esterase,Urine Negative (Negative); Nitrite,Urine Negative (Negative); Protein,Urine 30 mg/dL (Neg-Trace); Specific Gravity,Urine 1.021 (1.010-1.025); Urobilinogen,Urine Normal (Normal)
[2019-10-05 16:54] LABS: Bacteria,Urine None Seen per hpf (None-Few); Hyaline Casts,Urine None Seen per lpf (None-Few); RBC,Urine 50-100 per hpf (0-3); Squamous Epithelial Cell,Urine Moderate per lpf (None-Few); WBC,Urine 0-3 per hpf (0-3)
[2019-10-05] MEDS ORDERED: Acetaminophen 325 MG TABLET PO PRN (18:22)
[2019-10-05] MEDS ORDERED: Naloxone 0.4 MG/ML INJ IVP PRN (18:22)
[2019-10-05] MEDS ORDERED: Ondansetron ODT 4 MG TAB.RAPDIS SL PRN (18:22)
[2019-10-05] MEDS ORDERED: *HR* Dextrose 50 % in Water (Syg) 50 ML SYRINGE IVP PRN (18:44)
[2019-10-05] MEDS ORDERED: D5% in Water 1,000 ML IVC PRN (18:44)
[2019-10-05] MEDS ORDERED: Dextrose Gel 15 GM/37.5 ML TUBE PO PRN ×2 (18:44)
[2019-10-05] MEDS ORDERED: Insulin DETEMIR 100 UNIT/ML X5UNITS SQ SCH (21:00)
[2019-10-05] MEDS: Insulin LISPRO 300 UNITS/3 ML VIAL SQ SCH (21:48)
[2019-10-06 02:05] LABS: Calcium 9.4 mg/dL (8.6-10.3); Potassium 3.9 mEq/L (3.5-5.1)
[2019-10-06] MEDS: *HR* Heparin 5,000 UNIT/ML VIAL SQ SCH ×2 (05:02→17:06)
[2019-10-06] MEDS: Insulin LISPRO 300 UNITS/3 ML VIAL SQ SCH ×3 (07:37→15:29)
[2019-10-06] MEDS ORDERED: Insulin DETEMIR 100 UNIT/ML X5UNITS SQ SCH (21:00)
[2019-10-07] MEDS: *HR* Heparin 5,000 UNIT/ML VIAL SQ SCH (05:35)
[2019-10-07 05:51] LABS: Calcium 9.1 mg/dL (8.6-10.3); Potassium 4.4 mEq/L (3.5-5.1)
[2019-10-07] MEDS: Insulin LISPRO 300 UNITS/3 ML VIAL SQ SCH ×2 (07:57→11:33)
[2019-10-07 11:26] VITALS: BP 126/58
== END 2019-10-07 15:35 | disposition home or self-care (01) ==
LOC: 3BNU 15:13 → EMEROOARM 15:13 → SUATTDRO 20:20 → 3BNU 20:41
PROVIDERS: ADMIT Internal Medicine; ATTEND Internal Medicine

== ENCOUNTER 2019-12-09 10:52 | Observation (INO) ==
[2019-12-09] MEDS ORDERED: 0.9 % Sodium Chloride 1,000 ML IVC ONE ×2 (10:58→13:05)
[2019-12-09 11:30] LABS: Bilirubin,Urine Negative (Negative); Blood,Urine Small (Negative); Clarity,Urine Cloudy (Clear); Color,Urine Yellow (Yellow); Glucose,Urine (UA) 100 mg/dL (Normal); Ketones,Urine Negative (Negative); Leukocyte Esterase,Urine Large (Negative); Nitrite,Urine Negative (Negative); Protein,Urine Trace mg/dL (Neg-Trace); Specific Gravity,Urine 1.017 (1.010-1.025); Urobilinogen,Urine Normal (Normal)
[2019-12-09 11:33] LABS: Bacteria,Urine Few per hpf (None-Few); Hyaline Casts,Urine None Seen per lpf (None-Few); Squamous Epithelial Cell,Urine Few per lpf (None-Few); WBC,Urine TNTC per hpf (0-3)
[2019-12-09 11:39] LABS: Amphetamine Screen,Urine Negative ng/mL (Cutoff=1000); Barbiturate Screen,Urine Negative ng/mL (Cutoff=200); Benzodiazepines Screen,Urine Negative ng/mL (Cutoff=200); Cannabinoid Screen,Urine Negative ng/mL (Cutoff = 50); Cocaine Screen,Urine Negative ng/mL (Cutoff= 300); Opiate Screen,Urine Negative ng/mL (Cutoff=300); Phencyclidine Screen,Urine Negative ng/mL (Cutoff=25)
[2019-12-09 11:48] LABS: ABG Base Excess 0 mEq/L (-2 to 3); ABG HCO3 24 mEq/L (21-27); ABG Oxygen Saturation 100 % (95-98); ABG PCO2 36 mmHg (35-45); ABG PH 7.43 pH Units (7.32-7.45); ABG PO2 177 mmHg (85-104); ABG TCO2 25 mEq/L (20-26)
[2019-12-09 11:50] LABS: Basophils % 0.3 %; Eosinophils # 0.1 K/mcL (0.0-0.6); Eosinophils % 1.6 %; Hematocrit 34.2 % (37.5-50.1); Hemoglobin 11.1 g/dL (12.9-16.9); Immature Granulocytes % 0.8 % (0-4); Lymphocytes # 1.9 K/mcL (0.6-4.6); Lymphocytes % 29.6 %; Mean Corpuscular HGB Conc 32.5 g/dL (31.6-35.5); Mean Corpuscular Hemoglobin 30.7 pg (28.0-33.3); Mean Corpuscular Volume 94.5 fL (83.0-100.0); Mean Platelet Volume 10.1 fL (9.4-12.4); Monocytes # 0.5 K/mcL (0.0-1.3); Monocytes % 7.4 %; Neutrophils # 3.8 K/mcL (1.6-8.9); Platelet Count 130 K/mcL (140-400); Red Blood Count 3.62 M/mcL (4.19-5.50); Segmented Neutrophils % 60.3 %; White Blood Count 6.4 K/mcL (4.3-11.1)
[2019-12-09 11:53] LABS: INR 1.2; Prothrombin Time 13.7 Seconds (9.4-12.1)
[2019-12-09 11:55] LABS: Activated Partial Thrombo Time 26.6 Seconds (26.0-36.0)
[2019-12-09 12:03] LABS: Alanine Aminotransferase 23 Units/L (7-52); Albumin 3.4 g/dL (3.5-5.7); Albumin/Globulin Ratio 1.4 (1.1-2.2); Alkaline Phosphatase 64 Units/L (34-104); Aspartate Amino Transferase 15 Units/L (13-39); BUN/Creatinine Ratio 16 (6-26); Bilirubin,Direct 0.1 mg/dL (0.0-0.2); Bilirubin,Indirect 0.4 mg/dL (0.0-1.0); Bilirubin,Total 0.5 mg/dL (0.3-1.0); Blood Urea Nitrogen 29 mg/dL (8-23); Calcium 9.2 mg/dL (8.6-10.3); Carbon Dioxide 24 mEq/L (23-29); Chloride 106 mEq/L (98-107); Ethanol < 10 mg/dL (Less than 10); Globulin 2.5 g/dL (2.4-3.5); Glucose 182 mg/dL (70-105); Osmolality,Calculated 296 (280-300); Potassium 4.3 mEq/L (3.5-5.1); Sodium 138 mEq/L (136-145); Total Protein 5.9 g/dL (6.4-8.9); Troponin I < 0.03 ng/mL (< 0.04); eGFR For African Americans 43 (> 60); eGFR For Non-African Americans 36 (> 60)
[2019-12-09] MEDS ORDERED: cefTRIAXone 2,000 MG in Water for inj. (sterile) 20 ML IVP ONE (12:23)
[2019-12-09 12:27] LABS: Magnesium 1.7 mg/dL (1.6-2.6); Phosphorous 2.9 mg/dL (2.7-4.5)
[2019-12-09 12:40] LABS: Thyroid Stimulating Hormone 1.778 mcIU/mL (0.340-5.600)
[2019-12-09] MEDS ORDERED: Naloxone 0.4 MG/ML INJ IVP PRN (16:00)
[2019-12-09] MEDS ORDERED: Ondansetron 4 MG/2 ML VIAL IVP PRN (16:00)
[2019-12-09] MEDS ORDERED: 0.9 % Sodium Chloride 1,000 ML IVC SCH (16:15)
[2019-12-09] MEDS ORDERED: D5% in Water 1,000 ML IVC PRN (16:55)
[2019-12-09] MEDS ORDERED: *HR* Dextrose 50 % in Water (Syg) 50 ML SYRINGE IVP PRN (16:55)
[2019-12-09] MEDS ORDERED: Dextrose Gel 15 GM/37.5 ML TUBE PO PRN ×2 (16:55)
[2019-12-09] MEDS: Piperacillin/Tazobactam 3.375 GM in 0.9 % Sodium Chloride Mini Bag 100 ML IVPB SCH (20:06)
[2019-12-09] MEDS: 0.9 % Sodium Chloride 1,000 ML IVC SCH (20:07)
[2019-12-09] MEDS: Insulin LISPRO 300 UNITS/3 ML VIAL SQ SCH ×2 (20:07→20:30)
[2019-12-10] MEDS: Piperacillin/Tazobactam 3.375 GM in 0.9 % Sodium Chloride Mini Bag 100 ML IVPB SCH ×3 (00:13→15:18)
[2019-12-10 02:34] LABS: Basophils % 0.2 %; Eosinophils # 0.1 K/mcL (0.0-0.6); Eosinophils % 1.4 %; Hematocrit 32.7 % (37.5-50.1); Immature Granulocytes % 0.5 % (0-4); Lymphocytes # 1.6 K/mcL (0.6-4.6); Lymphocytes % 24.9 %; Mean Corpuscular HGB Conc 33.6 g/dL (31.6-35.5); Mean Corpuscular Hemoglobin 30.3 pg (28.0-33.3); Mean Corpuscular Volume 90.1 fL (83.0-100.0); Mean Platelet Volume 10.3 fL (9.4-12.4); Monocytes # 0.7 K/mcL (0.0-1.3); Monocytes % 10.4 %; Platelet Count 159 K/mcL (140-400); Red Blood Count 3.63 M/mcL (4.19-5.50); Segmented Neutrophils % 62.6 %; White Blood Count 6.4 K/mcL (4.3-11.1)
[2019-12-10 02:57] LABS: Magnesium 1.7 mg/dL (1.6-2.6); Phosphorous 2.5 mg/dL (2.7-4.5); Potassium 4.6 mEq/L (3.5-5.1)
[2019-12-10] MEDS: 0.9 % Sodium Chloride 1,000 ML IVC SCH ×2 (03:59→12:12)
[2019-12-10] MEDS: Insulin LISPRO 300 UNITS/3 ML VIAL SQ SCH ×4 (07:53→19:58)
[2019-12-10] MEDS: Cholecalciferol (D-3) 1,000 UNIT (25MCG) TABLET PO SCH (08:51)
[2019-12-10] MEDS ORDERED: cefTRIAXone 1,000 MG in Water for inj. (sterile) 10 ML IVP SCH (09:00)
[2019-12-10] MEDS ORDERED: 0.9 % Sodium Chloride 1,000 ML IVC SCH (16:45)
[2019-12-11] MEDS: Piperacillin/Tazobactam 3.375 GM in 0.9 % Sodium Chloride Mini Bag 100 ML IVPB SCH ×2 (00:34→08:32)
[2019-12-11 02:01] LABS: Hematocrit 32.6 % (37.5-50.1); Hemoglobin 10.8 g/dL (12.9-16.9); Mean Corpuscular HGB Conc 33.1 g/dL (31.6-35.5); Mean Corpuscular Hemoglobin 30.3 pg (28.0-33.3); Mean Corpuscular Volume 91.6 fL (83.0-100.0); Mean Platelet Volume 9.7 fL (9.4-12.4); Platelet Count 135 K/mcL (140-400); Red Blood Count 3.56 M/mcL (4.19-5.50); White Blood Count 5.9 K/mcL (4.3-11.1)
[2019-12-11 02:19] LABS: Calcium 9.1 mg/dL (8.6-10.3); Potassium 4.1 mEq/L (3.5-5.1)
[2019-12-11] MEDS: Cholecalciferol (D-3) 1,000 UNIT (25MCG) TABLET PO SCH (08:33)
[2019-12-11] MEDS: Insulin LISPRO 300 UNITS/3 ML VIAL SQ SCH ×2 (08:33→11:37)
[2019-12-11 10:43] VITALS: BP 132/75
== END 2019-12-11 13:44 | disposition home or self-care (01) ==
LOC: 3BNU 10:52 → EMEROOARM 10:52 → 3BNU 15:16
PROVIDERS: ADMIT Pharmacist; ATTEND Pharmacist

== ENCOUNTER 2020-10-05 10:53 | Observation (INO) ==
[2020-10-05] MEDS ORDERED: 0.9 % Sodium Chloride 1,000 ML IVC ONE (11:07)
[2020-10-05 11:28] LABS: Lymphocytes % 38.2 %; Red Cell Distribution Width 11.9 % (11.5-14.5)
[2020-10-05 11:30] LABS: Basophils % 0.2 %; Eosinophils # 0.1 K/mcL (0.0-0.6); Eosinophils % 1.5 %; Hematocrit 37.7 % (37.5-50.1); Hemoglobin 12.2 g/dL (12.9-16.9); Immature Granulocytes % 0.9 % (0-4); Immature Platelets 2.2 % (1.1-6.1); Lymphocytes # 2.5 K/mcL (0.6-4.6); Mean Corpuscular HGB Conc 32.4 g/dL (31.6-35.5); Mean Corpuscular Hemoglobin 29.8 pg (28.0-33.3); Mean Platelet Volume 10.2 fL (9.4-12.4); Monocytes # 0.5 K/mcL (0.0-1.3); Monocytes % 7.6 %; Neutrophils # 3.4 K/mcL (1.6-8.9); Platelet Count 121 K/mcL (140-400); Segmented Neutrophils % 51.6 %; White Blood Count 6.6 K/mcL (4.3-11.1)
[2020-10-05 11:36] LABS: Platelet Estimate Slight Decrease (Normal)
[2020-10-05 11:44] LABS: INR 1.2; Prothrombin Time 14.1 Seconds (9.4-12.1)
[2020-10-05 11:47] LABS: Activated Partial Thrombo Time 23.6 Seconds (26.0-36.0)
[2020-10-05 12:00] LABS: Alanine Aminotransferase 30 Units/L (7-52); Albumin 3.9 g/dL (3.5-5.7); Albumin/Globulin Ratio 1.5 (1.1-2.2); Alkaline Phosphatase 54 Units/L (34-104); Aspartate Amino Transferase 17 Units/L (13-39); BUN/Creatinine Ratio 15 (6-26); Bilirubin,Direct 0.1 mg/dL (0.0-0.2); Bilirubin,Indirect 0.4 mg/dL (0.0-1.0); Bilirubin,Total 0.5 mg/dL (0.3-1.0); Blood Urea Nitrogen 31 mg/dL (8-23); Carbon Dioxide 25 mEq/L (23-29); Chloride 102 mEq/L (98-107); Creatine Kinase 46 Units/L (30-223); Ethanol < 10 mg/dL (Less than 10); Globulin 2.6 g/dL (2.4-3.5); Glucose 182 mg/dL (70-105); Osmolality,Calculated 297 (280-300); Potassium 4.3 mEq/L (3.5-5.1); Sodium 138 mEq/L (136-145); Thyroid Stimulating Hormone 2.153 mcIU/mL (0.340-5.600); Total Protein 6.5 g/dL (6.4-8.9); Troponin I < 0.03 ng/mL (< 0.04); eGFR For African Americans 38 (> 60); eGFR For Non-African Americans 31 (> 60)
[2020-10-05 12:18] LABS: Amphetamine Screen,Urine Negative ng/mL (Cutoff=1000); Barbiturate Screen,Urine Negative ng/mL (Cutoff=200); Benzodiazepines Screen,Urine Negative ng/mL (Cutoff=200); Cannabinoid Screen,Urine Negative ng/mL (Cutoff = 50); Cocaine Screen,Urine Negative ng/mL (Cutoff= 300); Opiate Screen,Urine Negative ng/mL (Cutoff=300); Phencyclidine Screen,Urine Negative ng/mL (Cutoff=25)
[2020-10-05 12:38] LABS: Bilirubin,Urine Negative (Negative); Blood,Urine Moderate (Negative); Clarity,Urine Clear (Clear); Color,Urine Light-Yellow (Yellow); Glucose,Urine (UA) 100 mg/dL (Normal); Ketones,Urine Negative (Negative); Leukocyte Esterase,Urine Negative (Negative); Mucus,Urine Few per lpf (None-Few); Nitrite,Urine Negative (Negative); Protein,Urine Negative (Neg-Trace); RBC,Urine 15-30 per hpf (0-3); Specific Gravity,Urine 1.013 (1.010-1.025); Urobilinogen,Urine Normal (Normal); WBC,Urine 0-3 per hpf (0-3)
[2020-10-05] MEDS ORDERED: Naloxone 0.4 MG/ML INJ IVP PRN (13:17)
[2020-10-05] MEDS ORDERED: D5% in Water 1,000 ML IVC PRN (13:20)
[2020-10-05] MEDS ORDERED: *HR* Dextrose 50 % in Water (Vial) 50 ML VIAL IVP PRN (13:20)
[2020-10-05] MEDS ORDERED: Dextrose Gel 15 GM/37.5 ML TUBE PO PRN ×2 (13:20)
[2020-10-05] MEDS: 0.9 % Sodium Chloride 1,000 ML IVC SCH (15:02)
[2020-10-05] MEDS ORDERED: QUEtiapine Fumarate 25 MG TABLET PO PRN (15:26)
[2020-10-05] MEDS: Insulin LISPRO 300 UNITS/3 ML VIAL SQ SCH ×2 (15:46→17:26)
[2020-10-05] MEDS ORDERED: levETIRAcetam 1,000 MG in 0.9 % Sodium Chloride 100 ML IVPB ONE (17:16)
[2020-10-05] MEDS: *HR* Heparin 5,000 UNIT/ML VIAL SQ SCH (17:28)
[2020-10-05] MEDS ORDERED: Insulin LISPRO 300 UNITS/3 ML VIAL SQ SCH (21:00)
[2020-10-06] MEDS: 0.9 % Sodium Chloride 1,000 ML IVC SCH (03:58)
[2020-10-06] MEDS: *HR* Heparin 5,000 UNIT/ML VIAL SQ SCH (05:46)
[2020-10-06 06:47] LABS: Calcium 9.7 mg/dL (8.6-10.3); Magnesium 1.9 mg/dL (1.6-2.6); Phosphorous 2.9 mg/dL (2.7-4.5)
[2020-10-06] MEDS: Insulin LISPRO 300 UNITS/3 ML VIAL SQ SCH ×2 (07:51→11:46)
[2020-10-06] MEDS ORDERED: Cholecalciferol (D-3) 1,000 UNIT (25MCG) TABLET PO SCH (09:00)
[2020-10-06] MEDS ORDERED: calcitrioL 0.25 MCG CAPSULE PO SCH (09:00)
[2020-10-06] MEDS ORDERED: levETIRAcetam 250 MG TABLET PO SCH (09:19)
[2020-10-06] MEDS ORDERED: amLODIPine 5 MG TABLET PO SCH (11:15)
[2020-10-06 12:37] VITALS: BP 156/85
== END 2020-10-06 15:45 | disposition home or self-care (01) ==
LOC: EMEROOARM 10:53 → 3BNU 10:53 → SUATTDRO 13:33 → 3BNU 15:05
PROVIDERS: ADMIT Internal Medicine; ATTEND Internal Medicine